=== PATIENT | female | born 1950 | race Caucasian/White ===

== ENCOUNTER 2016-09-27 18:24 | Inpatient (IN) ==
[2016-09-27 19:19] LABS: MANUAL DIFF NEEDED? NO
[2016-09-27 19:22] LABS: BASO% 0.5 % (0.0-0.8); EOS# 0.07 X1000 (0.0-0.7); EOS% 1.1 % (0.0-10.0); HEMATOCRIT 37.7 % (37.0-47.0); HEMOGLOBIN 12.5 g/dL (12.0-16.0); LYMPH# 2.01 X1000 (1.2-3.4); LYMPH% 31.6 % (20.5-51.1); MCH 29.8 PG (27-31); MCHC 33.2 g/dL (33-37); MONO# 0.54 X1000 (0.11-0.59); MONO% 8.5 % (1.7-9.3); MPV 10.6 FL (7.4-10.4); NEUT% 58.3 % (42.2-75.2); PLT 203 X1000 (130-400); RBC 4.19 XMIL (4.2-5.4)
[2016-09-27 19:51] LABS: AGAP 15; ALBUMIN 4.1 g/dL (3.5-5.0); ALKALINE PHOSPHATASE 65 U/L (32-104); AMYLASE 186 U/L (20-200); BUN 10 mg/dL (8-22); CALCIUM 9.1 mg/dL (8.8-10.2); CHLORIDE 104 mmol/L (98-107); COSMO 282; GOT 18 U/L (10-30); GPT 16 U/L (10-36); LIPASE 369 U/L (13-60); POTASSIUM 3.7 mmol/L (3.5-5.1); SODIUM 142 mmol/L (136-145); TCO2 23 mmol/L (25-35); TOTAL BILIRUBIN 0.48 mg/dL (0.20-1.00); TOTAL PROTEIN 6.7 g/dL (6.3-8.3)
[2016-09-27] MEDS ORDERED: MORPHINE IV ONE (20:12)
[2016-09-27] MEDS ORDERED: ZOFRAN IV ONE (20:12)
[2016-09-27] MEDS ORDERED: NS 1,000 ML IV ONE (20:13)
[2016-09-27] MEDS ORDERED: DILAUDID IV ONE (21:28)
[2016-09-27 21:36] LABS: URINE CULTURE NEEDED? NO; URINE MICRO REVIEW NEEDED? NO; URINE SOURCE CLEAN CATCH
--- NOTE | 2016-09-27 21:37 | PROVIDER DOCUMENTATION ---
This chart was entered by Faizan Cuba Scribe, acting as scribe for Vincent Avalos PA. HPI-Abdominal Pain/GI Problem - General Chief Complaint: Abdominal Pain Stated Complaint: Abdominal Pain Time Seen by Provider: 09/27/16 19:01 Source: patient Allergies/Adverse Reactions: Patient Allergies Allergy/AdvReac Type Severity Reaction Status Date / Time No Known Allergies Allergy Verified 09/27/16 18:38 Home Medications: Home Medication List Medication Instructions Recorded Confirmed Last Taken Type NK [No Home Medications] 09/27/16 09/27/16 Unknown History - History of Present Illness-ABD Nature of Presenting Problems: Pt is a 66 yowf who presents to ER via EMS with CC of lower abdominal pain, onset this am while at [employer]. Pt reports that she has 3 hernias (superpubicx2, RLQ/R inguinal x1). Pt reports that she had surgery performed for a perforated colon in January of last year by Dr. Liu, but never followed up. Pt complains of mild diarrhea this am, but denies any other sxs besides her abdominal pain. Abdominal Pain Onset Location: reports: RLQ, LLQ Pain Radiation: reports: no radiation Quality of Pain: reports: aching, cramping, sharp Severity in ED: reports: moderate Onset/Duration: reports: this morning Timing: reports: still present Associated Symptoms: reports: constipation, diarrhea, trouble walking. denies: anxiety, arm pain, back/neck pain, chest pain, cough, diaphoresis, dizziness, fever/chills, headaches, heartburn, loss of appetite, muscle aches, nausea, shortness of breath, syncope, vomiting, weakness Last BM: this morning Dark Stools Present?: reports: none noticed Rectal Bleeding: reports: none Rectal Pain: reports: none Emesis Description: reports: none Review of Systems - Adult - REVIEW OF SYSTEMS - ADULT Constitutional: denies: chills, fever, fatique, night sweats, weight gain, weight loss Eyes: reports: no symptoms reported Ears, Nose, Mouth & Throat: reports: no symptoms reported Cardiovascular: denies: chest pain, irregular heart rate, palpitations, poor circulation, syncope Respiratory: denies: cough, dyspnea on exertion, excessive sputum production, shortness of breath, wheezing Gastrointestinal: reports: abdominal pain, constipation, nausea. denies: hematemesis, diarrhea, difficulty swallowing, frequent heartburn, poor appetite , rectal bleeding, vomiting Genitourinary: reports: no symptoms reported Musculoskeletal: reports: no symptoms reported Integumentary: reports: no symptoms reported Neurological: reports: no symptoms reported Psychiatric: reports: no symptoms reported Endocrine: reports: no symptoms reported Hematologic/Lymphatic: reports: no symptoms reported Allergic/Immunologic: reports: no symptoms reported All Other Systems: Reviewed and Negative Past History - Adult - PAST MEDICAL HISTORY-ADULT Review of Records: reports: Nursing Assessment Review, Medications Reviewed Cardiovascular: reports: CAD Psychiatric: reports: anxiety, depression - PRIOR SURGERIES/PROCEDURES Surgical/Procedure History: reports: CABG, BTL, hernia repair, orthopedic ( extremity) (left knee menisectomy, needs to have replacement), gastric bypass - IMMUNIZATION STATUS Childhood Immunizations: See Nurse Assessment Flu Vaccine: See Nurse Assessment Physical Exam-General - PHYSICAL EXAM-ADULT Initial Vital Signs Reviewed: Yes - CONSTITUTIONAL General Appearance: appears well, alert, moderate distress, thin - EYES Eyes: PERRL/EOMI, pink conjunctivae - NECK Neck: non-tender, full range of motion, supple, normal inspection. negative: C- spine tenderness, limited range of motion - RESPIRATORY Respiratory: chest non-tender, lungs clear, normal breath sounds, no pleuratic chest pain, no respiratory distress, no accessory muscle use. negative: respiratory distress, decreased breath sounds, accessory muscle use, wheezing - CARDIOVASCULAR Cardiovascular: normal peripheral pulses, regular rate, rhythm. negative: no murmur, bradycardia, tachycardia, irregularly irregular - GASTROINTESTINAL (ABDOMEN) Abdominal Exam: normal bowel sounds, no organomegaly, no pulsatile mass, guarding (RLQ), tenderness (superpubic/mild RLQ). negative: non tender, soft, distended - LYMPHATIC Lymphatic: no adenopathy - MUSCULOSKELETAL Back Exam: normal inspection, no CVA tenderness, no vertebral tenderness. negative: CVA tenderness, muscle spasm, vertebral tenderness Extremity: normal range of motion, non-tender, normal gait, normal inspection, no pedal edema, no calf tenderness, normal capillary refill, pelvis stable. negative: deformity, erythema, inflammation, swelling, tenderness - SKIN Integumentary: normal color, normal turgor, warm/dry. negative: abrasion(s), diaphoresis, ecchymosis, erythema, laceration(s), swelling, tenderness, warm - NEUROLOGIC Neurologic: office clerk II-XII nml as tested, grossly normal, no motor/sensory deficits . negative: motor weakness, sensory deficit - PSYCHIATRIC Psych/Mental Status: normal thought content, normal thought process, oriented x 3, anxious, tearful. negative: normal mood/affect Progress - PLAN OF CARE/RESULTS Progress/Plan/Lab Results: Vital Signs - 8 hr 09/27/16 18:39 Temperature 98.3 F Pulse Rate 78 Respiratory Rate 20 Blood Pressure 182/92 O2 Sat by Pulse Oximetry 98 Laboratory Results - last 24 hr 09/27/16 09/27/16 18:47 18:47 WBC 6.36 RBC 4.19 L Hgb 12.5 Hct 37.7 MCV 90.0 MCH 29.8 MCHC 33.2 RDW Std Deviation 15.5 H Plt Count 203 MPV 10.6 H Immature Gran % (Auto) 0.0 Neut % (Auto) 58.3 Lymph % (Auto) 31.6 Perkins % (Auto) 8.5 Eos % (Auto) 1.1 Baso % (Auto) 0.5 Immature Gran # (Auto) 0.00 Neut # (Auto) 3.71 Lymph # (Auto) 2.01 Perkins # (Auto) 0.54 Eos # (Auto) 0.07 Baso # (Auto) 0.03 Sodium 142 Potassium 3.7 Chloride 104 Carbon Dioxide 23 L Anion Gap 15 BUN 10 Creatinine 0.7 Estimated GFR/1.73 m2 > 60 BUN/Creatinine Ratio 14 Glucose 102 Calculated Osmolality 282 Calcium 9.1 Total Bilirubin 0.48 AST 18 ALT 16 Alkaline Phosphatase 65 Total Protein 6.7 Albumin 4.1 Globulin 2.6 Albumin/Globulin Ratio 1.6 Amylase 186 Lipase 369 H Orders Category Date Time Status ED: Urine Bedside ORDERED Care 09/27/16 19:04 Active Saline Loc DIRECTED Care 09/27/16 19:04 Active NPO Diet 09/27/16 19:04 Active AMYLASE [CHEM] Stat Lab 09/27/16 18:47 Completed CBC WITH ELECTRONIC DIFF [HEME] Stat Lab 09/27/16 18:47 Completed COMPREHENSIVE METABOLIC PANEL [CHEM] Stat Lab 09/27/16 18:47 Completed LIPASE [CHEM] Stat Lab 09/27/16 18:47 Completed URINALYSIS W/POSS RFLX CULT-1 [URINALYSIS] Stat Lab 09/27/16 19:[address], technical clerk discovered pt had contrast dye in her bladder. When asked why, pt reported that she was seen at [facility] earlier today , had a CT, and was diagnosed with an incarcerated hernia. Pt was given [place] 5 and told to come to [place] to see Dr. Liu. Result Diagrams: 09/27/16 18:47 09/27/16 18:47 - CONSULTS/PCP/HOSPITALIST Notification #1 *Consult/PCP/Hospitalist*: Dr. Liu (Surgeon) Time Discussed: 20:44 (will review the CT) #2 Consult: Dr. Irving (Hospitalist) Time Discussed: 21:35 Reason/Comments: will admit but wants Dr. Liu to examine the pt and wants repeat xray #3 Consult: Dr. Liu Time Discussed: 21:36 Reason/Comments: Will see pt in the ER in 20 min. Departure - Departure Date of Disposition Decision: 09/27/16 Time of Disposition Decision: 21:33 DIAGNOSIS: Abdominal pain Qualifiers: Abdominal location: unspecified location Qualified Code(s): R10.9 - Unspecified abdominal pain Pancreatitis Qualifiers: Chronicity: acute Pancreatitis type: unspecified pancreatitis type Acute pancreatitis complication: unspecified Qualified Code(s): K85.90 - Acute pancreatitis without necrosis or infection, unspecified Disposition: ADMITTED INPATIENT 09 Certified Medical Emergency: Emergent Condition: Stable Referrals and Follow-Ups: None,PCP [Primary Care Provider] - - Critical Care Note This patient required my direct & personal management of CC.: No Attestation - Physician/ NANCY Attestation Patient care was provided by Advanced Practice Provider:: Yes Advanced Practice Provider:: Vincent Avalos Advanced Practice Provider documentation review:: The Mid-level provider documentation, treatment plan and medical decision making was reviewed by the physician who agrees with all treatment and medical decision making by the MLP. This chart was documented by the indicated scribe, (Faizan Cuba Scribe) and accurately reflects the services I performed and decisions made by me, Vincent Avalos PA, as attested by the provider's signature.
[2016-09-27 21:40] LABS: BILIRUBIN URINE NEGATIVE (NEGATIVE); BLOOD URINE NEGATIVE (NEGATIVE); COLOR YELLOW; GLUCOSE URINE NEGATIVE (NEGATIVE); LEUKOCYTES URINE NEGATIVE (NEGATIVE); NITRITE URINE NEGATIVE (NEGATIVE); PROTEIN URINE TRACE mg/dL (NEGATIVE); TURBIDITY URINE CLEAR (CLEAR); UR EPITHELIAL CELLS <10 /HPF (<10); URINE BACTERIA NEGATIVE /HPF; URINE RBC <10 /HPF (<10); URINE WBC <10 /HPF (<10); UROBILINOGEN URINE NORMAL (NORMAL)
[2016-09-27 21:42] LABS: SP GRAVITY URINE > 1.050
[2016-09-27 22:16] LABS: UR AMPHETAMINES QUAL NONE DETECTED (NONE DETECT); UR BARBITUATES QUAL NONE DETECTED (NONE DETECT); UR BENZODIAZEPIN QUAL NONE DETECTED (NONE DETECT); UR CANNABINOIDS QUAL NONE DETECTED (NONE DETECT); UR COCAINE QUAL NONE DETECTED (NONE DETECT); UR METHADONE QUAL NONE DETECTED (NONE DETECT); UR OPIATES QUAL NONE DETECTED (NONE DETECT); UR OXYCODONE QUAL NONE DETECTED (NONE DETECT); UR PCP QUAL NONE DETECTED (NONE DETECT)
--- NOTE | 2016-09-27 22:20 | Diag Imaging Result Doc PS360 ---
EXAM: FLAT/UPRIGHT ABD/1 VIEW CHEST HISTORY: acute abd pain TECHNIQUE: Three views COMPARISON: 01/29/2016 FINDINGS: The lungs are well expanded. No infiltrates. No cardiomegaly. No free air beneath the diaphragm. No bowel obstruction. No organomegaly. There are multiple surgical clips in the upper and mid abdomen. IMPRESSION: No acute abnormality Electronically signed by Chinmay Sullivan 09/27/2016 10:18 PM
[2016-09-27] MEDS ORDERED: OFIRMEV 1000 MG/ISOTONIC SOLN 1,000 MG/100 ML BOTTLE IV SCH (22:45)
--- NOTE | 2016-09-27 22:55 | CONSULTATION ---
DATE OF CONSULTATION: 09/27/2016 REQUESTING PHYSICIAN: Emergency Department. CONSULT CONCERNING: Multiple incisional hernias. HISTORY OF PRESENT ILLNESS: A 66-year-old female, well known to me, who I repaired a perforated marginal ulcer after Arcelia-en-Y gastric bypass back in January. Her postoperative course was uncomplicated and was discharged to follow up with me without issue. She apparently started having abdominal pain at [employer], initially went to hospital in [place], [place], had a CT scan that showed an incisional hernia but was discharged. By report, she says she was told to come follow up with me. She elected to come to the emergency department and at that time she was evaluated in emergency department again reported abdominal pain, initially to me she said left upper quadrant and then a few minutes later said right lower quadrant described as cramping and sharp and moderate intensity. Reports her last bowel movement this morning. It was noted in the ER's workup initially that CBC was essentially normal but she had elevated lipase at 369. They repeated an abdominal film and to my interpretation no acute pathology noted. She is going to be admitted by the hospitalist service. I was asked to weigh an opinion. PAST MEDICAL HISTORY: Includes coronary artery disease, anxiety, depression. PAST SURGICAL HISTORY: Includes previous open heart surgery, bilateral tubal ligation, previous hernia repair, previous Arcelia-en-Y gastric bypass, multiple orthopedic surgeries, previous exploratory laparotomy for perforated marginal ulcer. SOCIAL HISTORY: Former smoker. MEDICATIONS: The patient was given a prescription for [place] at the other facility. ALLERGIES: None. FAMILY HISTORY: Reviewed with patient, noncontributory. REVIEW OF SYSTEMS: A full 10 point review of systems obtained, negative except as specified in HPI. PHYSICAL EXAMINATION: Vital Signs: Patient is currently afebrile. Heart rate 78, pulse 20, blood pressure 180/92, O2 saturation 98% on room air. General exam: No acute distress. female. Appears stated age. HEENT: Normocephalic, atraumatic. Pupils equal, round, react to light. Mucous membranes moist. Oropharynx benign. Neck: Supple. Trachea midline. Cardiovascular: Regular rate and rhythm. Lungs: Grossly clear. Abdomen: Visible hernias that appear easily reducible. Abdomen soft, nondistended. She initially reported some abdominal pain diffusely but is distractible, did not see any skin changes, I do not have peritoneal signs on physical exam. Extremities: Moves all extremities. Skin: No signs of jaundice. Vascular: All extremities perfused. Neurologic: Grossly intact. LABORATORY: White blood cell count 6, hematocrit 37, platelet count 203,000. There is no left shift. Reviewed her labs. Lipase is 369. CT scan from outlying facility reviewed. ASSESSMENT/PLAN: A 66-year-old female with abdominal pain and possible pancreatitis. 1. Abdominal pain. At this time I do not think her abdominal pain is secondary to hernias. Her hernias had been present for some time. She does have very tenuous fascia which was noted on my operative report back in January. I suspect she will need some degree of repair but not an emergent setting. 2. Pancreatitis. At this time patient is to be admitted, resuscitated and follow up with her overall clinical picture. She does not have an elevated bilirubin or alkaline phosphatase suggest biliary origin. I would recommend continue to follow this as noted. I appreciate the consult. cc: Thong Liu MD
[2016-09-27] MEDS ORDERED: NS 1,000 ML IV SCH (23:03)
[2016-09-27] MEDS ORDERED: SODIUM CHLORIDE 0.9% INJ ONE (23:03)
[2016-09-27] MEDS ORDERED: PROTONIX IV ONE (23:03)
[2016-09-27] MEDS ORDERED: MAALOX PLUS LIQUID PO PRN (23:03)
[2016-09-27] MEDS: ZOFRAN IV PRN (23:37)
[2016-09-27] MEDS: LOVENOX SUBQ SCH (23:38)
--- NOTE | 2016-09-27 23:43 | HISTORY AND PHYSICAL ---
PRIMARY CARE PHYSICIAN: No primary care physician. REASON FOR ADMISSION: Sudden right lower quadrant pain today. HISTORY OF PRESENT ILLNESS: Ms. Mireya Hayes is a 67-year-old lady with past medical history of aortic valve replacement, Arcelia-en-Y gastric bypass surgery, tubal ligation, prior hernia, numerous previous orthopedic surgeries. Her last admission here she was admitted for exploratory laparotomy performed by Dr. Liu and at time she was found to have a perforated marginal ulcer and subsequently repaired. The patient said while in [facility] today she developed sudden right lower quadrant pain shooting down the anterior part of her right leg with subsequent weakness of that right leg to the point that she could barely stand up. The pain was sharp, worse with movement and has remained constant waxing and waning whenever she moves. Her last bowel movement was early this morning and was initially soft and she had 1 loose stool. Both of these were nonbloody and non- melanotic. She says for the last couple days she has been having some very low grade subjective low-grade fever. No genitourinary complaints except that her urine output has diminished a bit. She reports that her right lower extremity has improved over the last few hours since her pain has decreased a bit. She denies any abdominal distention. She admits to having nausea but no vomiting. She admits to having frequent belching episodes. She complains of inability to take a deep breath because of the pain in her abdomen. No other cardiorespiratory complaints. Patient said while she was in [place] she went to the local hospital. They did CAT scans there and they told her she had an incarcerated hernia and needed to go to [facility] to be evaluated. The films were reviewed by Dr. Liu, her surgeon, and the radiologist and they did not see any evidence of incarcerated hernia. Dr. Liu recommend the patient could be followed as an outpatient. However, the patient's pain has gotten progressively worse and her lipase is elevated. REVIEW OF SYSTEMS: Notable for dry mouth, thirst, and weakness and lightheadedness. Otherwise, 12 system review is negative. Positive findings per HPI. ALLERGIES: None. MEDICATIONS: Takes Colace, multivitamins and calcium. SURGICAL HISTORY: See above. FAMILY HISTORY: Notable for diabetes and heart disease in first-degree relatives. LAB WORK: Flat and upright x-ray done in our facility mentioned evidence of free air or significant dilation of bowel. White count 6000, hemoglobin and hematocrit 12 and 37, platelets 203,000 with normal differential. BUN 10, creatinine 0.3, amylase 186, lipase 369. PHYSICAL EXAMINATION: GENERAL: Thin middle-aged woman who is mildly anorexic. VITAL SIGNS: Blood pressure is 182/90, heart rate 78, respirations 20, temperature is 98.3. She is 98% on room air. NEUROLOGIC: She is alert and oriented to person, place and time. Normal mood and affect. She is in mild to moderate distress from her pain. HEENT: Head is normocephalic, atraumatic. Eyes, PERRL. EOMI. Conjunctivae pale. ENT and oropharynx exam is only notable for dry oral mucosa. No exudates or erythema. There is no cyanosis noted. NECK: Supple. No JVD or carotid bruit. No thyromegaly. She has decreased skin turgor noted. CHEST: Clear to auscultation. Good air entry both lung knott. CARDIOVASCULAR: First and second sounds heard. No gallops, murmurs, rubs. Rhythm is regular. ABDOMEN: Full, soft, with marked tenderness in the right lower quadrant but no rebound or guarding. She has a 6 x 8 cm periumbilical hernia which is reducible and mildly tender. Bowel sounds are normal. RECTAL: Deferred at this time. No mass or organomegaly. EXTREMITIES: No edema, clubbing, cyanosis. Pulses distally in all extremities have good volume and symmetrical. No edema. SKIN: Intact. No rash or breakdown. ASSESSMENT: Elevated lipase and abdominal pain? Could be pancreatitis or course it would be early bowel perforation or penetration also. At this point in time we will keep patient NPO. Hydrate patient aggressively. We will consider repeating more detailed imaging , i.e. CT scan, if the patient's condition continues to decline or remains unchanged. We will treat patient symptomatically with antiemetics and analgesics. DVT prophylaxis with Lovenox. We will consult GI for further input and we will order a right upper quadrant sonogram also. Dr. Liu is on board and will be following along should surgical intervention be required periods. cc: MD DAMIAN Mae
[2016-09-28] MEDS: POTASSIUM CHLORIDE 10 MEQ in NS 1,000 ML IV SCH ×2 (00:42→09:33)
[2016-09-28] MEDS: ZOFRAN IV PRN ×2 (04:35→18:15)
[2016-09-28] MEDS: DILAUDID IV PRN ×3 (04:35→18:15)
[2016-09-28 05:39] LABS: MANUAL DIFF NEEDED? NO
[2016-09-28 05:42] LABS: BASO% 0.5 % (0.0-0.8); EOS# 0.08 X1000 (0.0-0.7); HEMATOCRIT 35.1 % (37.0-47.0); HEMOGLOBIN 11.3 g/dL (12.0-16.0); LYMPH# 1.41 X1000 (1.2-3.4); LYMPH% 35.1 % (20.5-51.1); MCH 29.9 PG (27-31); MCHC 32.2 g/dL (33-37); MCV 92.9 FL (81-99); MONO# 0.28 X1000 (0.11-0.59); MPV 10.3 FL (7.4-10.4); NEUT% 55.4 % (42.2-75.2); PLT 168 X1000 (130-400); RBC 3.78 XMIL (4.2-5.4)
[2016-09-28 06:13] LABS: AGAP 8; ALBUMIN 3.5 g/dL (3.5-5.0); ALKALINE PHOSPHATASE 55 U/L (32-104); BUN 8 mg/dL (8-22); CALCIUM 8.4 mg/dL (8.8-10.2); CHLORIDE 108 mmol/L (98-107); COSMO 279; GOT 15 U/L (10-30); GPT 12 U/L (10-36); POTASSIUM 4.5 mmol/L (3.5-5.1); SODIUM 141 mmol/L (136-145); TCO2 25 mmol/L (25-35); TOTAL BILIRUBIN 0.48 mg/dL (0.20-1.00); TOTAL PROTEIN 5.7 g/dL (6.3-8.3)
--- NOTE | 2016-09-28 06:47 | PROGRESS NOTE ---
DATE: 09/18/2016 SUBJECTIVE: The patient reports some changes in her vision and pain behind her eye, but otherwise says she had a rough night. OBJECTIVE: Vital Signs: Patient is currently afebrile. Her vital signs are stable. General: No acute distress. Sleeping comfortably when I arrived in the room. HEENT: Normocephalic, atraumatic. Pupils equal, round, react to light. Mucous membranes moist. Oropharynx benign. Neck: Supple. Trachea midline. Cardiovascular: Regular rate and rhythm. Lungs: Grossly clear. Abdomen: Soft. Some minimal tenderness to palpation but distractible hernia present, but no significant change. Extremities: Moves all extremities. Neurologic: Grossly intact. No focal deficits. Skin: No signs of jaundice. Vascular: All extremities perfused. LABORATORY: White blood cell count 4, hematocrit 35, platelet count 168,000, remainder of labs still pending. ASSESSMENT/PLAN: A 66-year-old, female with abdominal pain. 1. Abdominal pain. At this time I suspect it is likely related to pancreatitis. She does have some multiple hernias in her abdominal wall but suspect this is not causing any acute change or acute pathology on her. Very easily reducible. I will continue to monitor. 2. Reported vision changes at this time, I do not see any focal deficits. She is describing pain behind her eye. We will defer further management to the hospitalist service on this issue. cc: Thong Liu MD
--- NOTE | 2016-09-28 10:22 | Diag Imaging Result Doc PS360 ---
EXAM: CHEST-PORTABLE HISTORY: dyspnea TECHNIQUE: AP upright portable chest at 1010 COMMENT: The appearance of the chest has not changed significantly since 09/27/2016. IMPRESSION: Stable chest. Electronically signed by Jarett Montano 09/28/2016 10:19 AM
--- NOTE | 2016-09-28 11:33 | Diag Imaging Result Doc PS360 ---
EXAM: HEAD W/O CONTRAST HISTORY: refractory migraines TECHNIQUE: CT of the head without contrast COMMENT: There is no evidence of mass effect bleed or abnormal extra-axial fluid collection. The visualized paranasal sinuses are clear and the calvarium is intact. IMPRESSION: No evidence of acute disease. Electronically signed by Jarett Montano 09/28/2016 11:30 AM
[2016-09-28] MEDS ORDERED: SODIUM CHLORIDE 0.9% INJ ONE (11:48)
[2016-09-28] MEDS: PROTONIX IV SCH ×2 (12:15→23:54)
[2016-09-28] MEDS: NS 1,000 ML IV SCH (18:05)
--- NOTE | 2016-09-28 18:11 | PROGRESS NOTE ---
DATE: 09/28/2016 SUBJECTIVE: The complains of a right-sided headache with dizziness. She also complains of generalized abdominal pain and an inability to keep food and liquids down. OBJECTIVE: Vital Signs: Temperature 97.6 degrees, blood pressure 152/62, heart rate 64, respirations 18, O2 saturations 98% on room air. General: This is an elderly female, lying in bed, in no acute distress. Head: Normocephalic, atraumatic. Heart: S1, S2. Normal. Regular rate and rhythm. Lungs: Clear to auscultation bilaterally. No wheezes, no rales. No rhonchi. Abdomen: Positive bowel sounds. Soft, nontender, nondistended. Extremities: No edema. No cyanosis. No calf tenderness. Neurologic: The patient is alert oriented x3. LABORATORY: White blood cell count 4, hemoglobin 11, hematocrit 35, platelets 168,000. Sodium 141, potassium 4.5, chloride 108, CO2 25, BUN 8, creatinine 0.6, glucose 87, CRP 13.6, lipase 389. ASSESSMENT AND PLAN: 1. Acute pancreatitis. The patient will remain nothing per oral. We will continue on intravenous fluid hydration p.r.n. antiemetics and p.r.n. pain medication. Follow the lipase closely. 2. Recurrent migraines. The patient states that the frequency of the migraines has increased over the last month. She reports that she is not on any migraine medication. Her head CT is unremarkable. May consider doing an MRI. We will defer to the neurologist regarding this issue. 3. History of aortic valve replacement. Aware. 4. History of gastric bypass. Aware. 5. Gastrointestinal prophylaxis. Continue on IV Protonix. 6. Deep vein thrombosis prophylaxis. Continue on Lovenox. cc: Maritza Koo MD
[2016-09-28] MEDS: TYLENOL PO PRN ×2 (18:15→23:58)
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
[2016-09-28] MEDS: LOVENOX SUBQ SCH (22:03)
[2016-09-29] MEDS: DILAUDID IV PRN ×3 (05:45→21:44)
[2016-09-29] MEDS: ZOFRAN IV PRN (05:46)
[2016-09-29 06:28] LABS: MANUAL DIFF NEEDED? NO
[2016-09-29 06:33] LABS: BASO% 1.6 % (0.0-0.8); EOS# 0.09 X1000 (0.0-0.7); EOS% 2.4 % (0.0-10.0); HEMOGLOBIN 12.5 g/dL (12.0-16.0); LYMPH# 1.58 X1000 (1.2-3.4); LYMPH% 41.6 % (20.5-51.1); MCH 29.8 PG (27-31); MCHC 32.1 g/dL (33-37); MCV 92.9 FL (81-99); MONO# 0.25 X1000 (0.11-0.59); MONO% 6.6 % (1.7-9.3); MPV 10.9 FL (7.4-10.4); NEUT% 47.8 % (42.2-75.2); PLT 183 X1000 (130-400)
--- NOTE | 2016-09-29 06:41 | PROGRESS NOTE ---
DATE: 09/29/2016 SUBJECTIVE: Patient is doing okay. Still reports some abdominal pain. OBJECTIVE: Vital Signs: Patient is currently afebrile. Her vital signs have been stable. General: No acute distress. Resting comfortably. HEENT: Normocephalic atraumatic. Pupils equal, round, react to light. Mucous membranes moist. Oropharynx benign. Neck: Supple. Trachea midline. Cardiovascular: Regular rate and rhythm. Lungs: Grossly clear. Abdomen: Soft. Hernia present. Really did not appreciate significant amount of tenderness on this exam. Extremities: Moves all extremities. Neurologic: Grossly intact. Skin: No signs of jaundice. Vascular: All extremities perfused. LABORATORY: Currently pending. ASSESSMENT/PLAN: A 66-year-old, female with abdominal pain. 1. Abdominal pain. At this time, patient's is likely having pain from pancreatitis. The etiology of this pancreatitis is unknown. Her amylase was elevated yesterday as was her C. reactive protein. Gastroenterology has been consulted on this. I do not think that her hernia is the source of her pain. She does have very tenuous fascia of the entirety of her abdominal wall, which makes repair likely high risk for recurrence. I would like to have her etiology of pancreatitis figured out and her pancreatitis resolved before even considering surgical intervention on her hernia. 2. Reported vision changes. This seems to be potentially related to migraines. Neurology is following. I will defer workup to them. cc: Thong Liu MD
[2016-09-29 07:02] LABS: AGAP 15; ALBUMIN 3.8 g/dL (3.5-5.0); ALKALINE PHOSPHATASE 63 U/L (32-104); BUN 12 mg/dL (8-22); CALCIUM 8.8 mg/dL (8.8-10.2); CHLORIDE 104 mmol/L (98-107); COSMO 278; GOT 18 U/L (10-30); GPT 12 U/L (10-36); LIPASE 28 U/L (13-60); POTASSIUM 4.4 mmol/L (3.5-5.1); SODIUM 141 mmol/L (136-145); TCO2 22 mmol/L (25-35); TOTAL BILIRUBIN 0.52 mg/dL (0.20-1.00); TOTAL PROTEIN 6.5 g/dL (6.3-8.3)
--- NOTE | 2016-09-29 09:04 | PROGRESS NOTE ---
DATE: 09/29/2016 Ms. Hayes is awake and alert. She seems brighter and more comfortable than yesterday. She reports her headache is significantly improved. She is able to tolerate brighter light this morning. There is nothing new neurologically. Computer record shows blood pressures 130s to 180s systolic range in the last 12 hours. She continues afebrile. Another thought today is that frequent analgesic doses for management of her abdominal pain could be associated with medication overuse/analgesic rebound headache. I do not think she has had that management going on for long enough to explain her recent daily headache syndrome, however. I offered to follow her as an outpatient for headache management if needed. No new suggestions today. Thanks again for asking me to see Ms. Hayes. cc: Sameer Santoro III, MD
--- NOTE | 2016-09-29 11:11 | CONSULTATION ---
DATE OF CONSULTATION: 09/28/2016 REASON FOR REFERRAL: Abdominal pain, pancreatitis. HISTORY OF PRESENT ILLNESS: This is a 67-year-old white female who has past medical history of aortic valve replacement, Arcelia-en-Y gastric bypass surgery, previous hernia repairs, and has a history of perforated ulcer with repair in January of last year. She reports increasing abdominal pain. She reports chronic pain from her hernias. She has recently been in the hospital in [place] and evaluation was done. She reports chronic constipation and abdominal pain. She uses Colace and Denisse-Colace. Under evaluation, she was found to have an elevated amylase and lipase. PAST MEDICAL HISTORY: Aortic valvular replacement. History of fibromyalgia, anxiety/depression, coronary artery disease. PAST SURGICAL HISTORY: Open heart surgery/valve replacement, tubal ligation, hernia repairs, Arcelia- en-Y gastric bypass, multiple orthopedic surgeries, history of exploratory laparotomy and repair of perforated gastric ulcer. ALLERGIES: No known drug allergies. MEDICATIONS: Senna 1 every night. Colace 200 mg every night. Nitroglycerin 0.4 mg sublingual as needed. SOCIAL HISTORY: No reported tobacco or alcohol use. She is single. She has 2 children living. REVIEW OF SYSTEMS: Per HPI. PHYSICAL EXAMINATION: Vital Signs: Temperature 98.0 degrees, pulse 60, respirations 18, blood pressure 165/70. General: Patient is awake and alert. She complains of side pain. She has also complained of headaches and has been seen by Neurology. HEENT: Normocephalic, atraumatic. Pupils equal, round, reactive to light. Sclerae nonicteric. Respiratory: Lung sounds clear bilaterally. Cardiovascular: Regular rate and rhythm. Abdomen: Soft. Positive bowel sounds. Noted hernias. LABORATORY: Hematology: White count 4.02, hemoglobin 11.3, hematocrit 35.1, MCV 92.9, platelets 168,000. Chemistry: Sodium 141, potassium 4.5, chloride 108, CO2 of 25, BUN 8 , creatinine 0.6, glucose 87. C-reactive protein 13.6. Amylase 236, lipase 389. X-RAYS: Abdominal x-ray showed no acute abnormality. She has had a head CT for her complaints of chronic migraines, with no evidence of acute disease. ASSESSMENT AND PLAN: 1. Abdominal pain. 2. Elevated amylase, lipase. 3. Pancreatitis. 4. Migraines, following with Dr. Santoro. 5. Incisional hernias. Following with Dr. Liu. PLAN: Continue symptomatic treatment for pancreatitis. IV fluids. Recheck lab work in the morning. Etiology unknown. Will continue to follow and further plans will be made as needed. She may need MRCP to check for pancreatic divisum. Further plans will be made. I have discussed this case with Dr. Echeverria. Thank you for this consultation. Dictated by EVA Baldwin for Dev Echeverria MD cc: EVA Sanchez MD [facility]
--- NOTE | 2016-09-29 12:07 | PROGRESS NOTE ---
DATE: 09/29/2016 SUBJECTIVE: Patient states she feels about the same. She is still complaining of abdominal pain. She thinks it is more related to her abdominal hernias. She is being treated for pancreatitis, unknown etiology. Repeat lipase today was normal 28. Yesterday her amylase was 236, and lipase was 389. She is tolerating a clear liquid diet. She reports chronic constipation and is asking for her laxative regimen that she takes at home which is 2 Colace daily and 2 Denisse-Colace daily. Vital signs: Temperature 98.4 degrees, pulse 68, respirations 20, blood pressure 144/60. Generally: Patient is awake, alert, no acute distress. Abdomen: Is soft. She does have noted hernia. Positive bowel sounds. Tenderness with palpation. LABORATORY: Hematology: White count 3.80, hemoglobin 12.5, hematocrit 39.0, MCV 92.9, platelet 183,000. Chemistry: Sodium 141, potassium 4.4, chloride 104, CO2 of 22, BUN 12 , creatinine 0.7, glucose 53, total bilirubin 0.52, AST 18, ALT 12, alkaline phosphatase 63. Lipase today 28. Yesterday amylase was 236, lipase was 389. ASSESSMENT AND PLAN: 1. Abdominal pain. 2. Pancreatitis, lipase today is normal 3. Migraines followed by [facility]. 4. Incisional hernia. Following with Dr. Liu. PLAN: Lipase is normal today. Continue supportive care and symptomatic treatment. We will continue to follow. I have ordered her home laxative regimen of Colace and Denisse-Colace. Follow with Dr. Liu regarding her hernias. Dictated by EVA Baldwin for Dev Echeverria MD cc: EVA Sanchez MD [facility]
[2016-09-29] MEDS ORDERED: LACTULOSE PO ONE (12:19)
[2016-09-29] MEDS: NS 1,000 ML IV SCH ×3 (12:37→21:43)
[2016-09-29] MEDS: PROTONIX IV SCH ×2 (12:38→23:53)
--- NOTE | 2016-09-29 12:58 | ECHO REPORT ---
ORDER DATE: 09/28/2016 MEASUREMENTS: Left ventricular end-diastolic diameter 4.7. Systolic diameter 3.3. Posterior wall thickness 0.9. Septal thickness 1.3. Left atrium 4.3. Aortic root 3.6 SUMMARY: 1. Fair quality study. 2. Aortic valve has been replaced with bioprosthesis which appears to be opening adequately. Peak gradient across aortic valve is 22 mmHg with a mean gradient of 12 mmHg. There is trace perivalvular aortic regurgitation. Mitral, tricuspid, and pulmonic valves are without structural abnormality with mild mitral regurgitation and mild tricuspid regurgitation. The estimated systolic PA pressure by Doppler is 30-35 mmHg. Aortic root is normal size. 3. Normal left ventricular dimensions demonstrated. Estimated left ejection fraction appears to be at least 60%. No regional wall motion abnormality is evident. Left atrium is mildly enlarged. Right atrium and right ventricle are normal size with normal right ventricular systolic function. 4. No pericardial effusion. 5. Appearance of inferior vena cava suggests normal central venous pressure. CONCLUSIONS: 1. Fair quality study. 2. Aortic valve bioprosthesis functioning adequately. 3. Mild mitral regurgitation and mild tricuspid regurgitation. 4. Estimated left ejection fraction at least 60%. 5. Mild left atrial enlargement. cc: MD Maritza Linton MD
[2016-09-29] MEDS: COLACE PO SCH (16:12)
--- NOTE | 2016-09-29 19:44 | PROGRESS NOTE ---
DATE: 09/29/2016 SUBJECTIVE: The patient states that she is no longer having a headache. She does complain of constipation. OBJECTIVE: Vital Signs: Temperature 98 degrees, blood pressure 169/64, heart rate 63, respirations 20, O2 saturation is 100% on room air. General: This is an elderly female, lying in bed, in no acute distress. Head: Normocephalic, atraumatic. Heart: S1, S2. Normal. Regular rate and rhythm. Lungs: Clear to auscultation bilaterally. No wheezing. No rales. No rhonchi. Abdomen: Positive bowel sounds. Soft, nontender, nondistended. Extremities: No edema. No cyanosis. No calf tenderness. Neurologic: The patient is alert and oriented x3. No focal neurologic deficits noted. LABS: White blood cell count 3.8, hemoglobin 12, hematocrit 39, platelets 183,000. Sodium 141, potassium 4.4, chloride 104, CO2 22, BUN 12, creatinine 0.7, glucose 53, and lipase 28. ASSESSMENT AND PLAN: 1. Acute pancreatitis. This appears to have improved. The patient is tolerating a full liquid diet and her lipase is normal. 2. Constipation. We will start the patient on scheduled laxative therapy. 3. Hernia. This is being followed by the general surgeon. 4. Migraines. Improved. 5. Deep vein thrombosis prophylaxis. Continue on Lovenox. 6. Aortic valve replacement. Aware. cc: Maritza Koo MD
[2016-09-29] MEDS ORDERED: DULCOLAX PR SCH (21:00)
[2016-09-29] MEDS: PERICOLACE PO SCH (21:44)
[2016-09-29] MEDS: TYLENOL PO PRN (21:44)
[2016-09-29] MEDS: LOVENOX SUBQ SCH ×2 (21:45→22:20)
[2016-09-30] MEDS: DILAUDID IV PRN ×3 (03:21→18:54)
[2016-09-30] MEDS: ZOFRAN IV PRN ×2 (03:21→18:59)
[2016-09-30 05:43] LABS: MANUAL DIFF NEEDED? NO
[2016-09-30 05:56] LABS: EOS# 0.11 X1000 (0.0-0.7); EOS% 3.7 % (0.0-10.0); HEMATOCRIT 35.2 % (37.0-47.0); HEMOGLOBIN 11.3 g/dL (12.0-16.0); LYMPH# 1.25 X1000 (1.2-3.4); LYMPH% 41.7 % (20.5-51.1); MCH 29.6 PG (27-31); MCHC 32.1 g/dL (33-37); MCV 92.1 FL (81-99); MONO% 6.7 % (1.7-9.3); MPV 10.7 FL (7.4-10.4); NEUT% 46.9 % (42.2-75.2); PLT 190 X1000 (130-400); RBC 3.82 XMIL (4.2-5.4)
[2016-09-30 06:13] LABS: AGAP 11; BUN 6 mg/dL (8-22); CALCIUM 8.5 mg/dL (8.8-10.2); CHLORIDE 108 mmol/L (98-107); COSMO 282; HDL 61 mg/dL (45-65); LDL 81 mg/dL; POTASSIUM 4.2 mmol/L (3.5-5.1); SODIUM 143 mmol/L (136-145); TCO2 24 mmol/L (25-35); TRIGLYCERIDES 55 mg/dL (35-135); VLDL 11 mg/dL
--- NOTE | 2016-09-30 06:30 | PROGRESS NOTE ---
DATE: 09/30/2016 SUBJECTIVE: Patient doing okay. Had a bowel movement recorded. OBJECTIVE: Vital Signs: Patient is currently afebrile. Her vital signs are stable. General Examination: No acute distress. Resting comfortably. HEENT: Normocephalic and atraumatic. Pupils equal, round, and reactive to light. Mucous membranes moist. Oropharynx benign. Neck: Supple. Trachea midline. Cardiovascular: Regular rate and rhythm. Lungs: Grossly clear. Abdomen: Soft. Hernia present. I did not appreciate a significant amount of tenderness on this examination. Extremities: Moves all extremities. Neurologic: Grossly intact. Skin: No signs of jaundice. Vascular: All extremities perfused. Laboratory: Majority of the labs are pending but she does have a white blood cell count of 3 and hematocrit of 35. ASSESSMENT/PLAN: A 66-year-old, female with abdominal pain. Abdominal pain. At this time, it seems to be from the patient's pancreatitis, the etiology which is unknown. Gastroenterology is following the patient. She does have multiple abdominal hernias but she has a very tenuous fascia at this area. I suspect she would be best served with an outpatient evaluation for her hernia repair once she has resolved all her issues from her pancreatitis. I will continue to follow the patient while she is here. She can likely be advanced on her diet. cc: Thong Liu MD
[2016-09-30] MEDS: NS 1,000 ML IV SCH (08:49)
[2016-09-30] MEDS: COLACE PO SCH (08:49)
[2016-09-30] MEDS: NORVASC PO SCH ×2 (08:49→20:55)
[2016-09-30] MEDS ORDERED: SODIUM CHLORIDE 0.9% 10 ML ONE (10:02)
[2016-09-30] MEDS ORDERED: G.I. COCKTAIL PO ONE (10:09)
[2016-09-30] MEDS: PROTONIX IV SCH (12:17)
--- NOTE | 2016-09-30 13:49 | PROGRESS NOTE ---
DATE: 09/30/2016 SUBJECTIVE: Patient complains of some burning in her throat and belching. She did report a small loose stool today. She is still complaining of abdominal pain around her hernias. OBJECTIVE: Vital signs: Temperature 97.8 degrees, pulse 54, blood pressure 174 /75. General: Patient is awake, alert, in no acute distress. HEENT: Normocephalic, atraumatic. Pupils equal, round, reactive to light. Sclerae nonicteric. Cardiovascular: Regular rate and rhythm. S1, S2. Pulmonary: Lung sounds clear bilaterally. Abdomen: Soft. Noted hernias. Mild tenderness. Positive bowel sounds. DIAGNOSTIC RESULTS: Laboratory: Hematology: White count 3.0, hemoglobin 11.3 , hematocrit 35.2, MCV 92.1, platelet 190. Chemistry: Sodium 143, potassium 4.2, chloride 108, CO2 24, BUN 6, creatinine 0.6, glucose 79, total bilirubin 0.52. AST 18, ALT 12, alkaline phosphatase 63, C- reactive protein 2.92, lipase on 09/29. ASSESSMENT AND PLAN: 1. Pancreatitis. 2. Abdominal pain. 3. Abdominal hernias. 4. Constipation. PLAN: Continue supportive care. Repeat amylase and lipase tomorrow. She is tolerating a healthy-heart diet. Continue to follow with Dr. Liu regarding her abdominal hernias. Further plans will be made as needed. We will continue to follow. Dictated by EVA Baldwin for Dev Echeverria MD cc: EVA Sanchez MD [facility]
[2016-09-30] MEDS: TYLENOL PO PRN (15:34)
--- NOTE | 2016-09-30 16:53 | PROGRESS NOTE ---
DATE: 09/30/2016 SUBJECTIVE: The patient continues to complain of pain in the region of her abdominal hernias. She also complains of some reflux. OBJECTIVE: Vital Signs: Temperature 98 degrees, blood pressure 162/71, heart rate 67, respirations 20, O2 saturations 100% on room air. General: This is an elderly female, lying in bed, in no acute distress. Head: Normocephalic, atraumatic. Heart: S1, S2. Normal. Bradycardic. Lungs: Clear to auscultation bilaterally. Abdomen: Positive bowel sounds. Multiple abdominal hernias present. Extremities: No edema. No cyanosis. No calf tenderness. Neurologic: The patient is alert and oriented x3. LABORATORY: White blood cell count 3, hemoglobin 11, hematocrit 35, platelets 190,000. Sodium 143, potassium 4.2, chloride 108, CO2 24, BUN 6, creatinine 0.6, glucose 79. ASSESSMENT AND PLAN: 1. Acute pancreatitis. Resolved. 2. Abdominal hernia. Management as per Dr. Liu. 3. Migraines. Stable. 4. Hypertension. We will add hydralazine. Continue on Norvasc. 5. Constipation. Resolved. Continue on scheduled laxative therapy. 6. Aortic valve replacement. Aware. 7. Deep vein thrombosis prophylaxis. Continue with Sequential Compression Devices. 8. Disposition. The patient should be able to be discharged home tomorrow. cc: Maritza Koo MD
[2016-09-30] MEDS: APRESOLINE PO SCH (20:53)
[2016-09-30] MEDS: PERICOLACE PO SCH (20:53)
[2016-09-30] MEDS: LOVENOX SUBQ SCH ×2 (20:55→22:09)
[2016-10-01] MEDS: PROTONIX IV SCH ×3 (01:28→23:14)
[2016-10-01] MEDS: TYLENOL PO PRN ×2 (01:29→12:24)
[2016-10-01] MEDS: APRESOLINE PO SCH ×3 (04:46→20:57)
--- NOTE | 2016-10-01 06:24 | PROGRESS NOTE ---
DATE: 10/01/2016 SUBJECTIVE: Patient doing okay. OBJECTIVE: Vital Signs: Patient is currently afebrile. Her vital signs are stable. General Examination: No acute distress. Resting comfortably. Actively doing bedside exercises. HEENT: Normocephalic, atraumatic. Pupils equal, round, react to light. Mucous membranes moist. Oropharynx benign. Neck: Supple. Trachea midline. Cardiovascular: Regular rate and rhythm. Lungs: Grossly clear. Abdomen: Soft. Hernia present. Extremities: Moves all extremities. Neurologic: Grossly intact. Skin: No signs of jaundice. Vascular: All extremities perfused. Laboratory: Pending. ASSESSMENT/PLAN: A 66-year-old, female with abdominal pain. Abdominal pain. At this time, I think it is from the patient's pancreatitis which I think is improving. Gastroenterology is following. She does have multiple abdominal hernias but she had a very tenuous fascia at this area. I discussed with her outpatient evaluation for repair of her hernia and she is in agreement. I will see her as an outpatient. cc: Thong Liu MD
[2016-10-01] MEDS ORDERED: SODIUM CHLORIDE 0.9% 10 ML ONE (06:39)
[2016-10-01 06:49] LABS: AGAP 11; AMYLASE 58 U/L (20-200); BUN 12 mg/dL (8-22); CHLORIDE 104 mmol/L (98-107); COSMO 286; LIPASE 42 U/L (13-60); POTASSIUM 4.2 mmol/L (3.5-5.1); SODIUM 144 mmol/L (136-145); TCO2 29 mmol/L (25-35)
[2016-10-01] MEDS: NORVASC PO SCH ×3 (08:37→20:58)
[2016-10-01] MEDS: COLACE PO SCH (08:37)
[2016-10-01] MEDS: DILAUDID IV PRN ×2 (12:24→23:20)
[2016-10-01 14:01] LABS: URINE MICRO REVIEW NEEDED? NO; URINE SOURCE CLEAN CATCH
[2016-10-01 14:18] LABS: BILIRUBIN URINE NEGATIVE (NEGATIVE); BLOOD URINE NEGATIVE (NEGATIVE); COLOR YELLOW; GLUCOSE URINE NEGATIVE (NEGATIVE); LEUKOCYTES URINE NEGATIVE (NEGATIVE); NITRITE URINE NEGATIVE (NEGATIVE); PH URINE 6.5; PROTEIN URINE NEGATIVE (NEGATIVE); SP GRAVITY URINE 1.018; TURBIDITY URINE CLEAR (CLEAR); UROBILINOGEN URINE NORMAL (NORMAL)
[2016-10-01 14:19] LABS: UR EPITHELIAL CELLS <10 /HPF (<10); URINE BACTERIA NEGATIVE /HPF; URINE RBC <10 /HPF (<10); URINE WBC <10 /HPF (<10)
[2016-10-01] MEDS: LACTULOSE PO SCH ×2 (14:33→20:57)
[2016-10-01] MEDS ORDERED: DIFLUCAN PO ONE (15:09)
--- NOTE | 2016-10-01 16:44 | PROGRESS NOTE ---
DATE: 10/01/2016 SUBJECTIVE: The patient is resting comfortably in bed. She complains of burning on urination. A urinalysis was done that was noted to be normal. OBJECTIVE: Vital Signs: Temperature 98.6, blood pressure 128/50, heart rate 65 , respirations 20, O2 saturations 98% on room air. General: This is an elderly female, lying in bed, in no acute distress. Head: Normocephalic, atraumatic. Heart: S1, S2 normal. Regular rate and rhythm. Lungs: Clear to auscultation bilaterally. No crackles. No rales. Abdomen: Positive bowel sounds. Soft, nontender, nondistended. Extremities: No edema. No cyanosis. Neurologic: The patient is alert and oriented x3. LABS: Reviewed. ASSESSMENT AND PLAN: 1. Acute pancreatitis. Resolved. 2. Abdominal hernias. The patient will follow up as outpatient for further discussion about a repair. 3. Hypertension. Stable. 4. Migraine headaches. Stable. 5. Aortic valve replacement. Aware. 6. Constipation. Continue on scheduled laxative therapy. cc: Maritza Koo MD [facility]
[2016-10-01] MEDS: PERICOLACE PO SCH (20:57)
[2016-10-01] MEDS: DULCOLAX PR SCH (20:58)
[2016-10-01] MEDS: LOVENOX SUBQ SCH (22:03)
[2016-10-02] MEDS: APRESOLINE PO SCH ×3 (04:35→21:09)
[2016-10-02 06:31] LABS: AGAP 10; BUN 11 mg/dL (8-22); CALCIUM 8.5 mg/dL (8.8-10.2); CHLORIDE 104 mmol/L (98-107); COSMO 283; POTASSIUM 3.8 mmol/L (3.5-5.1); SODIUM 143 mmol/L (136-145); TCO2 29 mmol/L (25-35)
[2016-10-02 06:34] LABS: HEMATOCRIT 37.5 % (37.0-47.0); HEMOGLOBIN 12.1 g/dL (12.0-16.0); MCH 29.9 PG (27-31); MCHC 32.3 g/dL (33-37); MCV 92.6 FL (81-99); MPV 10.7 FL (7.4-10.4); RBC 4.05 XMIL (4.2-5.4)
[2016-10-02] MEDS: ZOFRAN IV PRN ×3 (09:04→22:20)
[2016-10-02] MEDS: NORVASC PO SCH ×2 (09:07→21:09)
[2016-10-02] MEDS: LACTULOSE PO SCH ×2 (09:07→21:08)
[2016-10-02] MEDS: COLACE PO SCH (09:07)
--- NOTE | 2016-10-02 09:22 | DISCHARGE SUMMARY ---
ADMISSION DATE: 09/27/2016 DISCHARGE DATE: 10/02/2016 CONSULTATIONS: 1. Dr. Sameer Santoro with Neurology. 2. Dr. Echeverria with Gastroenterology. 3. Dr. Thong Liu. PERTINENT PROCEDURE: 1. Head CT showed no evidence of acute disease. 2. Abdominal x-ray showed no acute abnormality. 3. Echocardiogram showed an EF of 60%. . DISCHARGE DIAGNOSES: 1. Acute pancreatitis 2. Abdominal hernias. 3. Hypertension 4. Migraine headaches. 5. Aortic valve replacement 6. Constipation HOSPITAL COURSE: Ms. Hayes is a 67-year-old female with a past medical history of aortic valve replacement, gastric bypass surgery, tubal ligation, prior hernia and numerous orthopedic surgeries. Her last admission here was for an exploratory laparotomy performed by Dr. Liu. At that time, she was found to have a perforated marginal ulcer and was subsequently repaired. The patient stated while she was in synagogue she developed a sudden right lower quadrant pain shooting down the anterior part of her right leg with subsequent weakness of that right leg to the point that she could barely stand up. The pain was sharp, worse with movement and remained constant, waxing and waning whenever she moved. Her last bowel movement was early in the morning. It was soft, one loose stool, nonbloody, nonmelanotic. She did state that she was having some low-grade subjective fever. The patient was initially evaluated in [place] at her local hospital. They did a CAT scan. They told her that she had an incarcerated hernia and needed to go to [place] to be evaluated. The films reviewed by Dr. Liu and the radiologist did not find any evidence of an incarcerated hernia. Dr. Liu recommended that the patient could be followed up as outpatient. However, the patient's pain got progressively worse and her lipase was elevated. She had a flat and upright x-ray done in our facility that mentioned evidence of free air or significant dilatation of bowel. White count was 6000, hemoglobin and hematocrit was 12 and 37. Amylase was 186, lipase was 369. The patient was admitted for acute pancreatitis as well as abdominal hernias. She was placed on bowel rest, started on IV fluids. The patient did start complaining of some pain behind her eye. They did a head CT that did not find anything acute. Dr. Santoro was consulted. She also complained of headache. It was felt maybe the patient was having rebound headaches from her analgesic medications; however, that has improved. Dr. Santoro offered to follow the patient as an outpatient for any headache management if needed. The patient was continued on supportive care for her pancreatitis. Her amylase and lipases have trended down. She is tolerating a healthy heart diet. The patient has been having bowel movements. Her acute pancreatitis has now resolved. As for her abdominal hernias, per Dr. Liu she has very tenacious fascia at this area and discussed with her outpatient evaluation for her hernia , and she is in agreement that he will follow her up on an outpatient basis. The patient is appropriate for discharge home today. VITAL SIGNS: Temperature is 98.1 degrees, heart rate 68, respirations 20, blood pressure 138/66, O2 is 100% on room. DISCHARGE DIET: Healthy heart. DISCHARGE MEDICATIONS: 1. Norvasc 5 mg p.o. b.i.d. 2. Colace 2 mg p.o. at bedtime. 3. 25 mg p.o. q.8 hours. 4. Nitroglycerin 0.4 mg sublingual p.r.n. 5. Protonix 40 mg p.o. daily. 6. Denisse-Colace 1 each p.o. at bedtime. FOLLOWUP: The patient is being discharged home. She will need to follow up with a primary care physician. The information has been given to her as well as information for [employer], handicap tab as well as a sit tub and NARCOG. The mental health social worker is working on these things. Patient will also need to follow up with Dr. Liu. Discussed the patient can return to the ED for any worsening of symptoms. DISCHARGE TIME: 30 minutes. Dictated by EVA Ryan for Maritza Koo MD cc: Maritza Koo MD [facility]PITALS[facility]ange
[2016-10-02] MEDS ORDERED: FIORICET PO ONE (11:19)
[2016-10-02 11:28] LABS: ALBUMIN 3.7 g/dL (3.5-5.0); ALKALINE PHOSPHATASE 56 U/L (32-104); DIRECT BILIRUBIN < 0.20 mg/dL (0.00-0.20); GOT 21 U/L (10-30); GPT 12 U/L (10-36); TOTAL BILIRUBIN 0.23 mg/dL (0.20-1.00); TOTAL PROTEIN 6.1 g/dL (6.3-8.3)
--- NOTE | 2016-10-02 11:29 | Diag Imaging Result Doc PS360 ---
EXAM: ABDOMEN FLAT/UPRIGHT HISTORY: nausea/vomiting TECHNIQUE: Flat and upright abdomen two views COMMENT: There is stool throughout the colon. The small bowel and stomach are not distended. There is no evidence organomegaly or mass. There are multiple surgical clips and staple lines in the upper abdomen on the left. Compared to 09/27/2016 there is more apparent stool throughout the colon. IMPRESSION: Constipation. Electronically signed by Jarett Montano 10/02/2016 11:26 AM
[2016-10-02] MEDS: LEVSIN-SL SL ONE (11:58)
[2016-10-02] MEDS: PROTONIX IV SCH (11:59)
--- NOTE | 2016-10-02 14:54 | PROGRESS NOTE ---
DATE: 10/02/2016 SUBJECTIVE: The patient complained of nausea this morning after eating breakfast. She also complains of abdominal cramping. OBJECTIVE: Vital Signs: Temperature 98.9 degrees, blood pressure 106/54, heart rate 81, respirations 20, and O2 saturation is 96% on room air. General: This is an elderly female, lying in bed in no acute distress. HEENT: Head normocephalic, atraumatic. Heart: S1 and S2 normal. Regular rate and rhythm. Lungs: Clear to auscultation bilaterally. Abdomen: Positive bowel sounds. Soft, nontender, nondistended. Extremities: No edema. No cyanosis. No calf tenderness. Neurologic: The patient is alert and oriented x3. LABORATORY: Reviewed. ASSESSMENT AND PLAN: 1. Nausea with abdominal pain. The patient had 2 bowel movements already today. An abdominal x- ray done today does show some continued constipation. We will continue with laxative therapy. Will also add Levsin for the abdominal cramping. 2. Pancreatitis. Resolved. 3. Migraine headaches. Resolved. 4. Aortic valve replacement. Aware. 5. Abdominal hernias. The patient will follow up with Dr. Liu as an outpatient to discuss further surgical options. 6. Disposition: We will plan to discharge the patient home tomorrow. cc: Maritza Koo MD
[2016-10-02] MEDS ORDERED: LEVSIN-SL SL SCH (17:00)
[2016-10-02] MEDS: DILAUDID IV PRN ×2 (18:22→22:17)
[2016-10-02] MEDS: PERICOLACE PO SCH (21:08)
[2016-10-02] MEDS: DULCOLAX PR SCH (21:09)
[2016-10-02] MEDS: LOVENOX SUBQ SCH ×2 (21:09→21:10)
[2016-10-03] MEDS: DILAUDID IV PRN ×2 (02:12→05:50)
[2016-10-03] MEDS: PROTONIX IV SCH ×2 (02:12→13:41)
[2016-10-03] MEDS: ZOFRAN IV PRN ×2 (02:45→05:50)
[2016-10-03] MEDS: APRESOLINE PO SCH ×3 (05:55→23:51)
[2016-10-03 06:39] LABS: HEMATOCRIT 37.4 % (37.0-47.0); HEMOGLOBIN 11.8 g/dL (12.0-16.0); MCH 30.3 PG (27-31); MCHC 31.6 g/dL (33-37); MCV 95.9 FL (81-99); MPV 10.7 FL (7.4-10.4); RBC 3.9 XMIL (4.2-5.4)
[2016-10-03 07:12] LABS: AGAP 10; BUN 16 mg/dL (8-22); CALCIUM 8.7 mg/dL (8.8-10.2); CHLORIDE 103 mmol/L (98-107); COSMO 285; POTASSIUM 4.5 mmol/L (3.5-5.1); SODIUM 143 mmol/L (136-145); TCO2 30 mmol/L (25-35)
[2016-10-03] MEDS ORDERED: HYDROCORTISONE 1% CREAM TOP PRN (09:59)
[2016-10-03] MEDS: HYDROXYZINE PO PRN ×2 (11:18→23:53)
[2016-10-03] MEDS: LEVSIN-SL SL ONE (11:18)
[2016-10-03] MEDS: LACTULOSE PO SCH ×2 (11:18→23:53)
[2016-10-03] MEDS: NORVASC PO SCH ×2 (11:18→23:53)
[2016-10-03] MEDS: COLACE PO SCH (11:18)
[2016-10-03] MEDS: ULTRAM PO PRN ×3 (11:47→23:52)
--- NOTE | 2016-10-03 15:28 | PROGRESS NOTE ---
DATE: 10/03/2016 SUBJECTIVE: The patient complains of itching on her chest and neck after receiving Dilaudid this morning. She still complains of intermittent abdominal pain. OBJECTIVE: Vital Signs: Temperature 97.8 degrees, blood pressure 130/61, heart rate 72, respirations 20, O2 saturations 100% on room air. General: This is an elderly female, lying in bed, in no acute distress. Head: Normocephalic atraumatic. Heart: S1, S2. Normal. Regular rate and rhythm. Lungs: Clear to auscultation bilaterally. No wheezes, no rales. No rhonchi. Abdomen: Positive bowel sounds. Soft, nontender, nondistended. Extremities: No edema. No cyanosis. No calf tenderness. Neurological: Patient is alert and oriented x3. LABS: Reviewed. ASSESSMENT AND PLAN: 1. Drug allergy. Will discontinue the Dilaudid and start the patient on hydroxyzine and hydrocortisone cream. 2. Acute pancreatitis. Resolved. 3. Abdominal hernias. The patient will follow up with Dr. Liu as outpatient. 4. Bioprosthetic aortic valve replacement. Aware. 5. Migraine headaches. Resolved. 6. Constipation. Continue on scheduled laxative therapy. cc: Maritza Koo MD
[2016-10-03] MEDS: PERICOLACE PO SCH (23:51)
[2016-10-03] MEDS: LOVENOX SUBQ SCH ×2 (23:53→23:57)
[2016-10-03] MEDS: DULCOLAX PR SCH (23:53)
[2016-10-04] MEDS: ZOFRAN IV PRN ×4 (05:59→22:56)
[2016-10-04] MEDS: PROTONIX IV SCH ×2 (06:02→18:45)
[2016-10-04] MEDS: ULTRAM PO PRN ×3 (06:02→18:53)
[2016-10-04] MEDS: APRESOLINE PO SCH ×3 (06:04→22:41)
[2016-10-04] MEDS: COLACE PO SCH (09:08)
[2016-10-04] MEDS: NORVASC PO SCH ×2 (09:08→22:41)
[2016-10-04] MEDS: LACTULOSE PO SCH ×2 (09:08→22:44)
[2016-10-04] MEDS ORDERED: FLEET ENEMA PR ONE (12:15)
[2016-10-04] MEDS ORDERED: CITRATE OF MAGNESIA PO ONE (16:12)
--- NOTE | 2016-10-04 16:35 | PROGRESS NOTE ---
DATE: 10/04/2016 SUBJECTIVE: The patient continues to complain of lower abdominal pain and states that she still feels constipated. OBJECTIVE: Vital signs: Temperature 98 degrees, blood pressure 120/56, heart rate 70, respirations 20, O2 saturation is 100% on room air. General: This is an elderly female, lying in bed, in no acute distress. Head: Normocephalic, atraumatic. Heart: S1, S2. Normal. Regular rate and rhythm. Lungs: Clear to auscultation bilaterally. Abdomen: Positive bowel sounds. Soft, nontender, nondistended. Extremities: No edema. No cyanosis. ASSESSMENT AND PLAN: 1. Constipation. Will order an enema and monitor the results. Continue with scheduled laxatives. 2. Pancreatitis. Resolved. 3. Abdominal hernia. Stable. The patient will follow up as outpatient for further discussion about surgical intervention. 4. Hypertension. Controlled. 5. Aortic valve replacement. Aware 6. Deep venous thrombosis prophylaxis. Continue on Lovenox. cc: Maritza Koo MD MTDD
[2016-10-04] MEDS: SODIUM CHLORIDE 0.9% INJ SCH (18:45)
[2016-10-04] MEDS: PERICOLACE PO SCH (22:40)
[2016-10-04] MEDS: LOVENOX SUBQ SCH (22:40)
[2016-10-04] MEDS: MIRALAX PO SCH (22:43)
[2016-10-04] MEDS: DULCOLAX PR SCH (22:44)
[2016-10-05] MEDS: LOVENOX SUBQ SCH ×2 (01:23→22:43)
[2016-10-05] MEDS: ULTRAM PO PRN ×3 (04:26→23:14)
[2016-10-05] MEDS: ZOFRAN IV PRN ×5 (05:43→23:14)
[2016-10-05] MEDS: PROTONIX IV SCH ×2 (05:43→17:19)
[2016-10-05] MEDS: APRESOLINE PO SCH (05:43)
[2016-10-05 07:27] LABS: AGAP 9; BUN 17 mg/dL (8-22); CALCIUM 8.9 mg/dL (8.8-10.2); CHLORIDE 103 mmol/L (98-107); COSMO 284; POTASSIUM 4.3 mmol/L (3.5-5.1); SODIUM 143 mmol/L (136-145); TCO2 31 mmol/L (25-35)
--- NOTE | 2016-10-05 07:32 | Diag Imaging Result Doc PS360 ---
ABDOMEN FLAT/UPRIGHT - 10/05/2016 INDICATION: constipation TECHNIQUE: COMPARISON: 10/02/2016 FINDINGS: There is improvement in the significant constipation. There is moderate stool in the rectum. No bowel obstruction or free air. Stable surgical clips and suture lines in the upper abdomen. IMPRESSION: Improvement in the significant constipation. There is still moderate stool in the rectum. Electronically signed by Blake Bah 10/05/2016 7:29 AM
[2016-10-05] MEDS: COLACE PO SCH (10:06)
[2016-10-05] MEDS: MIRALAX PO SCH ×2 (10:06→22:42)
[2016-10-05] MEDS: NORVASC PO SCH ×3 (10:06→21:41)
[2016-10-05] MEDS: LACTULOSE PO SCH ×2 (10:06→22:42)
[2016-10-05] MEDS ORDERED: FLEET ENEMA PR ONE (10:16)
--- NOTE | 2016-10-05 13:40 | PROGRESS NOTE ---
DATE: 10/05/2016 SUBJECTIVE: The patient states that she still feels constipated. The x-rays still show some stool in the colon. OBJECTIVE: Vital signs: Temperature 98.2, blood pressure 108/33, heart rate 71, respirations 18, O2 saturation is 95% on room air. General: This is an elderly female, sitting in a chair, in no acute distress. Head: Normocephalic, atraumatic. Heart: S1, S2, normal. Regular rate and rhythm. Lungs: Clear to auscultation bilaterally. No wheezes. No rales. No rhonchi. Abdomen: Positive bowel sounds. Soft, nontender, nondistended. Extremities: No edema. No cyanosis. No calf tenderness. Neurologic: The patient is alert and oriented x3. LABS: Sodium 143, potassium 4.3, chloride 103, CO2 21, BUN 17, creatinine 0.8. Abdominal x-ray shows improvement in the significant constipation. Moderate stool in the rectum. ASSESSMENT AND PLAN: 1. Severe constipation. We will continue with the laxative therapy today. Will give the patient a Fleet's enema today. Will repeat the x-ray tomorrow. 2. Pancreatitis. Resolved. 3. Bioprosthetic aortic valve replacement. Aware. 4. Abdominal hernia. The patient will follow up with Dr. Liu as outpatient to discuss further surgical intervention. 5. Hypertension. Controlled. 6. Deep vein thrombosis prophylaxis. Continue on Lovenox. 7. Disposition. The patient can be discharged home once her constipation has improved. cc: Maritza Koo MD
[2016-10-05] MEDS: SODIUM CHLORIDE 0.9% INJ SCH (17:19)
[2016-10-05] MEDS: PERCOCET-5 PO PRN (19:03)
[2016-10-05] MEDS: PERICOLACE PO SCH (22:42)
[2016-10-05] MEDS: DULCOLAX PR SCH (22:42)
[2016-10-06] MEDS: PERCOCET-5 PO PRN ×2 (03:35→10:06)
[2016-10-06] MEDS: PERICOLACE PO SCH (03:35)
[2016-10-06] MEDS: SODIUM CHLORIDE 0.9% INJ SCH (04:59)
[2016-10-06] MEDS: PROTONIX IV SCH (04:59)
[2016-10-06] MEDS: ZOFRAN IV PRN ×2 (05:04→12:08)
[2016-10-06 06:59] LABS: AGAP 10; BUN 25 mg/dL (8-22); CALCIUM 8.8 mg/dL (8.8-10.2); CHLORIDE 103 mmol/L (98-107); COSMO 289; POTASSIUM 4.5 mmol/L (3.5-5.1); SODIUM 143 mmol/L (136-145); TCO2 30 mmol/L (25-35)
[2016-10-06 07:57] VITALS: BP 131/69
--- NOTE | 2016-10-06 09:47 | Diag Imaging Result Doc PS360 ---
EXAM: ABDOMEN FLAT/UPRIGHT INDICATION: abdominal pain TECHNIQUE: 2 views COMPARISON: 10/05/2016 FINDINGS: Constipation continues to improve. There is now less stool in the rectum. Nonspecific bowel gas patterns are noted, otherwise. There is no definite obstructive pattern. There is no evidence of large volume free abdominal gas. IMPRESSION: Improving constipation. Electronically signed by Vincent Lopez 10/06/2016 9:44 AM
[2016-10-06] MEDS: NORVASC PO SCH (10:07)
[2016-10-06] MEDS: LACTULOSE PO SCH (10:08)
[2016-10-06] MEDS: MIRALAX PO SCH (10:08)
[2016-10-06] MEDS: COLACE PO SCH (10:08)
--- NOTE | 2016-10-07 07:00 | DISCHARGE SUMMARY ---
ADMISSION DATE: 09/27/2016 DISCHARGE DATE: 10/06/2016 CONSULTATIONS: 1. Dr. Sameer Santoro with neurology. 2. Dr. Chavez of gastroenterology. 3. Dr. Thong Liu with general surgery. PERTINENT PROCEDURES: 1. Head CT showed no evidence of acute disease. 2. Abdominal x-ray showed no acute abnormality. 3. Echocardiogram showed an EF of 60%. 4. Subsequent followup abdominal x-rays on 10/02/2016 showed constipation, on 10/05/2016 showed improvement in significant constipation, but there was still moderate stool in the rectum. Final abdominal x-ray on 10/06/2016 showed improving constipation. DISCHARGE DIAGNOSES: 1. Acute pancreatitis, resolved. 2. Abdominal hernias. The patient will follow up outpatient for further discussion about repair. 3. Hypertension, stable. 4. Migraine headaches, stable. 5. Aortic valve replacement, aware. 6. Constipation, resolving. Continue with bowel regimen. HOSPITAL COURSE: Ms. Hayes is a 67-year-old female who carries a past medical history of aortic valve replacement, gastric bypass surgery, tubal ligation, prior hernia and numerous orthopedic surgeries. Last admit was for exploratory laparoscopy performed by Dr. Liu. At that time, she was found to have a perforated marginal ulcer, which was subsequently repaired. The patient reported to the ED after she was in christianity where she developed sudden right lower quadrant shooting pain down the anterior part of her right leg with subsequent weakness of that right leg, to the point that she could barely stand up. The pain was sharp, worse with movement, and remained constant, waxing and waning, whenever she moved. Her last bowel movement was early in the morning that she described as soft, loose, nonbloody, nonmelanic. She did report a subjective low-grade fever. She was initially evaluated at [facility] where they did a CT scan and told her that she had an incarcerated hernia and needed to go to [place] to be evaluated. The films were reviewed by Dr. Liu, and the radiologist did not find any evidence of incarcerated hernia. Dr. Liu recommended that the patient could follow up with him as an outpatient; however, her pain got progressively worse. Her lipase was elevated. She had a flat and upright done that mentioned evidence of free air or significant dilatation of bowel. Her white count was 6000, hemoglobin and hematocrit were 12 and 37. Amylase was 186, lipase of 369. She was admitted for acute pancreatitis, as well as complaining of a pain behind her eye. They did a head CT that did not show any acute findings. Dr. Santoro was consulted. She was also complaining of a headache. Dr. Santoro felt that the patient was having rebound headaches from her analgesic medications; however, that has improved. Dr. Santoro offered to follow her as an outpatient for any headache management if needed. She was continued on supportive care for her pancreatitis. Her amylase and lipases have trended down. She was tolerating a healthy heart diet. She had been having bowel movements, but on the day of her discharge, she started having abdominal pain again, stating that she was unable to have a bowel movement. They did do another abdominal x- ray. It did show constipation. Her discharge was held. She was started on another bowel regimen. Since then, she has had followup abdominal x-rays that show improvement. She has had 2 bowel movements. No nausea or vomiting. She will follow up for abdominal hernias per Dr. Liu. She has a very tenacious fascia in this area, and again, they discussed the outpatient evaluation for her hernia repair. She was in agreement to follow up with him on an outpatient basis. She is appropriate for discharge home today. VITAL SIGNS AT TIME OF DISCHARGE: Temperature is 98.9 degrees, heart rate 62, respirations 18, blood pressure is 131/69, and O2 is 98% on room air. DISCHARGE MEDICATIONS: 1. Norvasc 5 mg p.o. b.i.d. 2. Colace 200 mg p.o. every night at bedtime. 3. Apresoline 25 mg p.o. t.i.d. 4. Nitroglycerin 0.4 mg sublingual p.r.n. 5. Percocet 5 one each p.o. every 6 hours p.r.n. 6. Protonix 40 mg p.o. daily. 7. Denisse-Colace 1 each p.o. every night at bedtime. 8. Ambien 5 mg p.o. every night at bedtime. DISCHARGE DIET: Healthy heart. FOLLOWUP: The patient is being discharged home. She will need to follow up with her primary care physician. Information has also been given to her as well as information for [facility] handicap tag, as well as how to obtain a sitz tub and NARCOG. This has all been set up through public health social worker. The patient will need to follow up with Dr. Liu. She can return to the ED for any worsening of symptoms. TIME SPENT: Discharge time is 30 minutes. Dictated by EVA Ryan for Ramy Leone MD cc: Ramy Leone MD
== END 2016-10-06 13:49 | disposition home or self-care (01) ==
LOC: ED 18:24 → SUATTDRO 22:44 → 4N 22:44
PROVIDERS: ATTEND Internal Medicine